=== PATIENT | male | born 1985 | race African-American/Black ===

== ENCOUNTER 2023-09-30 10:51 | Outpatient (CLI) | payer MEDICAID ==
[2023-09-30 11:25] LABS: BASOPHILS % (AUTO) 1.1 % (0-1); EOSINOPHILS # (AUTO) 0.2 X10'3 (0-0.9); EOSINOPHILS % (AUTO) 5.2 % (0-6); HEMATOCRIT 45.4 % (42.0-52.0); HEMOGLOBIN 14.9 g/dl (14.0-17.9); LYMPHOCYTES # (AUTO) 1.9 X10'3 (1.1-4.8); LYMPHOCYTES % (AUTO) 43.7 % (21-51); MEAN CORPUSCULAR HEMOGLOBIN 28.1 PG (27.0-31.0); MEAN CORPUSCULAR HGB CONC 32.8 g/dL (33.0-36.5); MEAN CORPUSCULAR VOLUME 85.6 FL (78-98); MEAN PLATELET VOLUME 9.7 FL (7.4-10.4); MONOCYTES # (AUTO) 0.3 X10'3 (0-0.9); MONOCYTES % (AUTO) 7.2 % (2-12); NEUTROPHILS # (AUTO) 1.9 X10'3 (1.8-7.7); NEUTROPHILS % (AUTO) 42.8 % (42-75); PLATELET COUNT 176 X10'3 (140-440); RED CELL DISTRIBUTION WIDTH 14.5 % (11.5-14.5); WHITE BLOOD COUNT 4.3 X10'3 (4.5-11.0)
[2023-09-30 11:42] LABS: HEMOGLOBIN A1C 5.8 % (4.5-6.2)
[2023-09-30 11:46] LABS: ALANINE AMINOTRANSFERASE 30 U/L (12-78); ALBUMIN/GLOBULIN RATIO 1.2 (1.1-1.5); ALKALINE PHOSPHATASE 70 IU/L (46-116); ANION GAP 8 (8-16); ASPARTATE AMINO TRANSFERASE 15 U/L (10-37); BILIRUBIN,TOTAL 0.5 MG/DL (0.1-1.0); BLOOD UREA NITROGEN 16 MG/DL (7-18); BUN/CREATININE RATIO 12.7 (10.0-20.0); CALCIUM 9.1 MG/DL (8.5-10.1); CHLORIDE 103 MMOL/L (99-107); CHOL/HDL RATIO 5.2 (0.00-4.99); CHOLESTEROL 233 MG/DL (0-200); CREATININE 1.26 MG/DL (0.60-1.10); FREE T4 (FREE THYROXINE) 0.87 NG/DL (0.73-1.40); GLUCOSE 108 MG/DL (70-104); HDL CHOLESTEROL 45 MG/DL (35-60); LDL CHOLESTEROL 130 MG/DL (50-100); POTASSIUM 4.1 MMOL/L (3.5-5.1); SODIUM 141 MMOL/L (135-145); THYROID STIMULATING HORMONE 1.53 ulU/ml (0.34-4.50); TOTAL CARBON DIOXIDE 30.5 MMOL/L (24-32); TOTAL PROTEIN 7.4 G/DL (6.4-8.2); TRIGLYCERIDES 206 MG/DL (20-135); eGFR 77 ML/MIN
== END 2023-09-30 23:59 | disposition home or self-care (01) ==
LOC: LAB 10:51
PROVIDERS: ATTEND Physician Assistant
DX: Z79.899 Other long term (current) drug therapy (principal)
CPT/HCPCS: 36415; 80053; 80061; 82306; 83036; 84439; 84443; 85025

== ENCOUNTER 2023-10-02 10:08 | Outpatient (CLI) | payer MEDICAID ==
[2023-10-02] MEDS ORDERED: GADOTERATE MEGLUMINE 7.5 MMOL/15 ML VIAL IV ONE (18:05)
== END 2023-10-02 23:59 | disposition home or self-care (01) ==
LOC: MRI 10:08
PROVIDERS: ATTEND Family Medicine
DX: M47.812 Spondylosis without myelopathy or radiculopathy, cervical region (principal); M48.02 Spinal stenosis, cervical region; M54.2 Cervicalgia; R42 Dizziness and giddiness
CPT/HCPCS: 70553; 72050; A9575

== ENCOUNTER 2024-04-02 17:30 | Emergency (ER) | payer BC, MEDICAID ==
[~2024-04-02] VITALS: Ht 188 cm; Wt 98.3 kg
[2024-04-02 17:32] VITALS: BP 133/90; PULSE 104; RESP 16; O2SAT 98
[2024-04-02] MEDS ORDERED: SULF1TAB45 PO (18:01)
[2024-04-02] MEDS ORDERED: CEPH-585 PO (18:01)
[2024-04-02] MEDS: cephalexin 250mg capsule PO ONE (18:38)
[2024-04-02] MEDS: sulfamethoxazole/trimethoprim DS (800/160mg) tablet PO ONE (18:38)
[2024-04-02 18:43] VITALS: TEMP 98.7
== END 2024-04-02 18:45 | disposition home or self-care (01) ==
LOC: ER 17:30
DX: L02.811 Cutaneous abscess of head [any part, except face] (principal); L03.811 Cellulitis of head [any part, except face]; Z88.7 Allergy status to serum and vaccine
CPT/HCPCS: 99283